=== PATIENT | male | born 1970 | race Caucasian/White ===

== ENCOUNTER → 2016-03-18 | Outpatient (CLI) | payer OTHER, MEDICARE ==
--- NOTE | 2016-03-18 18:38 | PN ---
DATE OF SERVICE: 03/18/2016 A 45-year-old gentleman who has been followed in sleep center for treatment of obstructive sleep apnea/hypopnea syndrome. Patient continued to use his CPAP equipment every night for the whole night. Patient continued to have symptoms of excessive daytime sleepiness, taking several naps during the day. [place] Sleepiness Scale increased to 10. MEDICATIONS: 1. ( ). 2. Requip. 3. Albuterol. 4. Flovent. During physical exam, patient in no distress. BP 120/82, HR 72, RR 16. Height 5 feet 7 inches. Weight 225 pounds. BMI 35.2. Neck 17 inches in circumference. HEENT: PERRLA, EOMI. LUNGS: Clear. HEART: S1, S2 regular. ABDOMEN: Soft, nontender. Slightly obese. EXTREMITIES: No edema. IMPRESSION: 1. Obstructive sleep apnea-hypopnea syndrome. Patient continued to use continuous positive airway pressure equipment, but feels sleepiness during the day. 2. Patient increased weight from 208 pounds during previous titration in 2011 up to 225 pounds at the present time. 3. History of brain injury in 1985. 4. History of seizures. 5. ( ) 6. Asthma. PLAN: 1. We will repeat CPAP titration to re-evaluate effective CPAP pressure at the present time. Patient increased his weight and feels sleepiness during the day. 2. Losing weight. 3. Sleep hygiene with regular time in bed for at least 8 hours. 4. No driving if feeling any sleepiness. Thank you very much for allowing me to participate in the management of your patient. Sincerely, Prem Cook MD, PhD, FAASM. Diplomat of [place] [employer], Sleep Medicine Board by [place] [employer] Board of [employer] Medicine Ell Teacher of [facility] [place]
== END | disposition home or self-care (01) ==
LOC: SLEEP 13:35
PROVIDERS: ATTEND Internal Medicine
DX: G47.33 Obstructive sleep apnea (adult) (pediatric) (principal); J45.909 Unspecified asthma, uncomplicated; G40.909 Epilepsy, unspecified, not intractable, without status epilepticus; Z79.899 Other long term (current) drug therapy
CPT/HCPCS: 99211

== ENCOUNTER → 2018-02-23 | Outpatient (CLI) | payer MEDICARE, OTHER ==
--- NOTE | 2018-02-23 15:13 | SFUN ---
SLEEP CENTER FOLLOW UP NOTE DATE OF SERVICE: 02/23/2018 A 47-year-old gentleman who has been followed in the Sleep Center for treatment of obstructive sleep apnea-hypopnea syndrome. Patient continued to use his CPAP equipment every night for the whole night without any significant problems, getting his supplies well. No snoring with the machine. [place] Sleepiness Scale today is 10. I checked his CPAP unit. CPAP pressure is 11 cm of water as it was prescribed during last titration in 2017. Usage is 30/30 nights for more than 4 hours. Average usage 8 hours and 36 minutes, which is great compliance. MEDICATIONS: , Requip, albuterol, QVAR, Flovent. PHYSICAL EXAM: Patient in no distress, BP 118/77, HR 73, RR 16, height 5, 7, weight 236.0, body mass index 36.9. Patient increased his weight: 28 pounds since previous CPAP titration when his weight was 208 pounds. Neck 18 inches in circumference, temperature 98.2, oxygen saturation at room air 98.2. OROPHARYNX: Mallampati 4. ABDOMEN: Obese. Neck Supple, no JVD. Thyroid is not palpable. LUNGS Clear to percussion and to auscultation. Good air exchange. No wheezing or rhonchi. HEART S1, S2 regular. No murmurs, gallops, or rubs. EXTREMITIES No clubbing or cyanosis. COMMERCIAL ANNOUNCER Awake, alert, and oriented X3. Cranial nerves 2 to 7 intact. There is no fasciculation or atrophy. noted. No focal deficits observed. IMPRESSION: 1. Obstructive sleep apnea-hypopnea syndrome, patient demonstrated 100% compliance with treatment, benefitting from treatment. 2. Obesity. 3. Status post brain injury in 1995. 4. History of seizures. 5. History of restless legs. 6. Asthma. 7. History of seizures, last episode of seizures around 15 years ago. PLAN: 1. Patient will continue treatment with CPAP every night for the whole night. 2. Will maintain all necessary CPAP prescriptions for mask, tube, filters. 3. We may consider to replace the CPAP unit. 4. Losing weight. 5. Precautions related to driving. No driving if feeling sleepiness. Thank you very much for allowing me to participate in the management of your patient. Sincerely, Prem Cook MD, PhD, FAASM Diplomat of [place] [employer] Specialties [place] Board of Internal Medicine Plant Attendant Or Assistant Operator of [facility] [place] MMODL / MENAN: [id number] /
== END ==
LOC: SLEEP 13:50
PROVIDERS: ATTEND Internal Medicine
DX: G47.33 Obstructive sleep apnea (adult) (pediatric) (principal); E66.9 Obesity, unspecified; Z98.890 Other specified postprocedural states; Z86.59 Personal history of other mental and behavioral disorders; Z87.898 Personal history of other specified conditions; J45.909 Unspecified asthma, uncomplicated; Z99.89 Dependence on other enabling machines and devices; Z79.899 Other long term (current) drug therapy; Z68.36 Body mass index [BMI] 36.0-36.9, adult

== ENCOUNTER → 2018-05-18 | Outpatient (CLI) | payer MEDICARE, OTHER ==
--- NOTE | 2018-05-18 17:21 | PN ---
PROGRESS NOTE DATE OF SERVICE: 05/18/2018 This patient is a 47-year-old gentleman who has been followed in the sleep center for treatment of obstructive sleep apnea-hypopnea syndrome. Recently the patient received his new CPAP unit, and he is able to use equipment every night for the whole night. He complains of water in the tube and feels that the pressure is too low when he is starting the machine. No complaints under high pressure. No snoring with the machine. I checked the patient's CPAP machine. Range of the pressure is from 5 to 14. Most of the time the pressure is 11.3. Leak is 5 L/minute, which is in normal range. Apnea- hypopnea index is only 0.3, which is perfect. Usage of the machine is 100% of the nights for more than 4 hours. Average usage is 8.8 hours, which is in very good range. Humidity is at the level of 8. [place] Sleepiness Scale today is 11. MEDICATIONS: 1. Requip. 2. Albuterol. 3. Qvar. 4. Flovent. 5. Carbatrol. PHYSICAL EXAMINATION: GENERAL: A pleasant patient in no distress. VITAL SIGNS: BP 132/75, HR 77, RR 16, weight 241.6, temperature 97.8, oxygen saturation at room air 94%. HEENT: PERRLA, EOMI. Evaluation of oropharynx showed tongue protrudes midline. Extremely low position of soft palate. Mallampati IV. NECK: Supple. No JVD. Thyroid is not palpable. LUNGS: Clear to percussion and to auscultation. Good air exchange. No wheezing or rhonchi. HEART: S1, S2 regular. No murmurs, gallops or rubs. ABDOMEN: Obese. EXTREMITIES: No clubbing or cyanosis. INSURANCE VERIFICATION CLERK: Awake, alert, and oriented X3. Cranial nerves 2 to 7 intact. There is no fasciculation or atrophy. noted. No focal deficits observed. IMPRESSION: 1. Obstructive sleep apnea-hypopnea syndrome. Patient demonstrated 100% compliance with treatment, benefitting from treatment. 2. Obesity. 3. Status post brain injury in 1995. 4. History of seizures. Last episode about 15 years ago. 5. History of restless legs. 6. Asthma. PLAN: 1. I taught the patient how to adjust humidity. We will decrease the level of humidity to 4. 2. The patient will keep the CPAP unit on a lower level than the level of his head during sleep by about 1 or 2 feet. 3. I will change pressure in the machine to range from 8 to 14. 4. Patient will continue to use CPAP equipment every night. 5. We will maintain prescriptions for all necessary CPAP supplies, including mask, tube, filters. 6. Losing weight. 7. No driving if feeling any sleepiness. Thank you very much for allowing me to participate in the management of your patient. Sincerely, Prem Cook MD, PhD, FAASM Diplomat of [place] Specialties [employer] Board of Internal Medicine Business Intelligence Reporting Analyst of [facility] [place] MMODL / IJN: [id number] /
== END | disposition home or self-care (01) ==
LOC: SLEEP 15:22
PROVIDERS: ATTEND Internal Medicine
DX: G47.33 Obstructive sleep apnea (adult) (pediatric) (principal); E66.9 Obesity, unspecified; J45.909 Unspecified asthma, uncomplicated; Z87.820 Personal history of traumatic brain injury; Z86.69 Personal history of other diseases of the nervous system and sense organs; Z99.89 Dependence on other enabling machines and devices; Z79.51 Long term (current) use of inhaled steroids; Z79.899 Other long term (current) drug therapy

== ENCOUNTER → 2018-05-24 | Outpatient (CLI) | payer MEDICARE, OTHER ==
[2018-05-26 11:40] VITALS: BMI 36.3
== END | disposition home or self-care (01) ==
LOC: LABWHC1 09:47
PROVIDERS: ATTEND Family Medicine
DX: R73.03 Prediabetes (principal); Z71.3 Dietary counseling and surveillance
CPT/HCPCS: 97802

== ENCOUNTER → 2018-11-30 | Outpatient (CLI) | payer MEDICARE, OTHER ==
--- NOTE | 2018-11-30 17:28 | PN ---
PROGRESS NOTE DATE OF SERVICE: 11/30/2018 48-year-old gentleman who has been followed in Sleep Center for treatment of obstructive sleep apnea-hypopnea syndrome. The patient is able to use CPAP equipment every night for the whole night with no significant problems at the present time after he received heated tube. Previously he had some condensation of water in the tube and it created some problems for him, but now no problems. No snoring with the machine. [place] Sleepiness Scale today is 10. I checked his CPAP unit, range of the pressure 8-14, average pressure 10.9, usage is 30 out of 30 nights for more than 4 hours with average usage 8 hours per night. Leak is 11 L/minutes which is absolutely normal. Apnea-hypopnea index only 0.3, which is perfect. MEDICATIONS: Albuterol, QVAR, Flovent, Carbatrol. PHYSICAL EXAM: Patient in no distress. BP 129/83, HR 70, RR 16, weight 233, temp 97.5, oxygen saturation at room air 94%. Oropharynx extremely low soft palate, Mallampati 4. Neck Supple, no JVD. Thyroid is not palpable. LUNGS Clear to percussion and to auscultation. Good air exchange. No wheezing or rhonchi. HEART S1, S2 regular. No murmurs, gallops, or rubs. ABDOMEN: Slightly obese. Soft and nontender. Bowel sounds are present. No organomegaly appreciated. EXTREMITIES No clubbing or cyanosis. BOX BRANDER Awake, alert, and oriented X3. Cranial nerves 2 to 7 intact. There is no fasciculation or atrophy. noted. No focal deficits observed. IMPRESSION: 1. Obstructive sleep apnea-hypopnea syndrome. Patient demonstrated 100% compliance with treatment benefitting from treatment. 2. Obesity. 3. History of seizures in the past. Last episode about 15 years ago. 4. Status post brain injury in 1985. 5. History of asthma. PLAN: 1. Patient will continue to use CPAP equipment every night for the whole night with the same regimen of pressure. 2. I will maintain prescriptions for all necessary CPAP supplies including mask, tube, filters. 3. The patient will continue to take Requip for restless legs. 4. Losing weight. 5. Precautions related to driving. No driving if feeling sleepiness. 6. Follow-up visit in 1 year or earlier if patient has any problems. Thank you very much for allowing me to participate in management of your patient. Sincerely, Prem Cook MD, PhD, FAASM Diplomat of [place] [employer] [employer] of Medical Specialties [employer] [place] Board of Internal Medicine Propulsion Systems Engineer of [facility] [place] MMODL / MENAN: [id number] /
== END | disposition home or self-care (01) ==
LOC: SLEEP 14:22
PROVIDERS: ATTEND Internal Medicine
DX: G47.33 Obstructive sleep apnea (adult) (pediatric) (principal); E66.9 Obesity, unspecified; Z86.69 Personal history of other diseases of the nervous system and sense organs; Z87.820 Personal history of traumatic brain injury; Z87.09 Personal history of other diseases of the respiratory system; Z99.89 Dependence on other enabling machines and devices; Z79.899 Other long term (current) drug therapy

== ENCOUNTER → 2020-06-12 | Outpatient (CLI) | payer MEDICARE, OTHER ==
--- NOTE | 2020-06-12 15:42 | SFUN ---
SLEEP CENTER FOLLOW UP NOTE DATE OF SERVICE: 06/12/2020 A 50-year-old gentleman has been followed in Sleep Center for treatment of obstructive sleep apnea-hypopnea syndrome home. Patient continued to use CPAP equipment every night for the whole night. No snoring with usage of equipment. Presently, no significant problem related to mask fitting, pressure or humidification as he had before. [place] Sleepiness Scale increased to 13. I checked his CPAP unit. Range of the pressure on 8-14, usage is 30 out of 30 nights for more than 4 hours with average usage 8.7 hours per night. Leak is 14 L/minute which is acceptable range. Apnea-hypopnea index only 0.3, which is absolutely perfect. MEDICATIONS: Carbatrol 300 mg twice a day and Carbatrol 100 mg once a day, albuterol inhaler, ropinirole 0.25 mg at bedtime, atorvastatin, Flovent. PHYSICAL EXAMINATION: GENERAL: Patient in no distress. VITAL SIGNS: BP 124/66, HR 68, RR 15, height 5 feet 8 inches, weight 235.6 pounds, body mass index 36, temperature 96.1, oxygen saturation at room air 94%. HEENT: PERRLA, EOMI. Oropharynx extremely low position of soft palate. Mallampati 4. NECK: Supple, no JVD. Thyroid is not palpable. LUNGS: Clear to percussion and to auscultation. Good air exchange. No wheezing or rhonchi. HEART: S1, S2 regular. No murmurs, gallops, or rubs. ABDOMEN: Obese. EXTREMITIES: No clubbing or cyanosis. INSTRUCTIONAL PARAPROFESSIONAL: Awake, alert, and oriented X3. Cranial nerves 2 to 7 intact. There is no fasciculation or atrophy. noted. No focal deficits observed. IMPRESSION: 1. Obstructive sleep apnea-hypopnea syndrome. Patient demonstrates 100% compliance with treatment, benefitting from treatment, normal respiration on CPAP. 2. Obesity: 3. History of seizures in the past, last episode about 15 years ago. 4. Status post brain injury. 5. History of restless legs. 6. Asthma. PLAN: 1. I wrote a prescription for all necessary CPAP supplies including a Mcknight FX, nasal pillow mask, heated tube, filters. 2. Patient will continue to use PAP equipment every night for the whole night. 3. Sleep hygiene with regular time in bed for at least 7-1/2 to 8 hours. 4. Precautions related to driving. No driving if feeling sleepiness. 5. I will maintain all necessary prescription for PAP supplies including mask, tube, filters. 6. Watching weight. 7. Follow-up visit in 6 months or earlier if patient has any problems. Thank you very much for allowing me to participate in management of your patient. Sincerely, Prem Cook MD, PhD, FAASM Diplomat of [place] Board of Medical Specialties [employer] Board of Internal Medicine Nuclear Auxiliary Operator of [facility] [place] MMODL / IJN: [id number] /
== END ==
LOC: SLEEP 10:11
PROVIDERS: ATTEND Internal Medicine
DX: G47.33 Obstructive sleep apnea (adult) (pediatric) (principal); Z87.820 Personal history of traumatic brain injury; Z86.69 Personal history of other diseases of the nervous system and sense organs; E66.9 Obesity, unspecified; G25.81 Restless legs syndrome; J45.909 Unspecified asthma, uncomplicated

== ENCOUNTER → 2021-02-26 | Outpatient (CLI) | payer MEDICARE, OTHER ==
--- NOTE | 2021-02-26 22:28 | SFUN ---
SLEEP CENTER FOLLOW UP NOTE DATE OF SERVICE: 02/26/2021 This 50-year-old gentleman has been followed in Sleep Center for treatment of obstructive sleep apnea-hypopnea syndrome. Patient continues to use CPAP equipment every night, getting supplies on time. [place] Sleepiness Scale is slightly increased to 11 today, but it is better than during the last visit, when it was 13. I checked his CPAP unit. Pressure is 8 to 14 cm of water, average 10.5 cm of water. Usage is 30/30 nights for more than 4 hours, average 8.4 hours per night. Leak is 13 L/minute, which is acceptable. Apnea-hypopnea index is only 0.5, which is totally normal. MEDICATIONS: 1. Carbatrol 700 mg once a day. 2. Requip 0.25 mg at bedtime. 3. Atorvastatin once a day. 4. Flovent. PHYSICAL EXAMINATION: GENERAL: Pleasant patient in no distress. VITAL SIGNS: BP 105/72, HR 66, RR 18, height 5 feet 7 inches, weight 223.6, body mass index 34.9, temperature 97.3, oxygen saturation at room air 96%. HEENT: PERRLA, EOMI, evaluation of oropharynx showed tongue protrudes midline. Extremely low position of soft palate; Mallampati IV. NECK: Supple, no JVD. Thyroid is not palpable. LUNGS: Clear to percussion and to auscultation. Good air exchange. No wheezing or rhonchi. HEART: S1, S2 regular. No murmurs, gallops, or rubs. ABDOMEN: Obese. EXTREMITIES: No clubbing or cyanosis. PUPPY TRAINER: Awake, alert, and oriented X3. Cranial nerves 2 to 7 intact. There is no fasciculation or atrophy. noted. No focal deficits observed. IMPRESSION: 1. Obstructive sleep apnea-hypopnea syndrome. Patient demonstrated great compliance with treatment. Totally normal respiration on CPAP. 2. Obesity. 3. History of seizures in the past, the last episode about 15 years ago. 4. Status post brain injury. 5. History of restless legs syndrome. 6. Asthma. PLAN: 1. Patient will continue to use PAP equipment every night for the whole night. 2. Sleep hygiene with regular time in bed for at least 7-1/2 to 8 hours. 3. Precautions related to driving. No driving if feeling sleepiness. 4. I will maintain all necessary prescription for PAP supplies including mask, tube, filters. 5. Watching weight. 6. Follow-up visit in 6 months or earlier if patient has any problems. Thank you very much for allowing me to participate in the management of your patient. Sincerely, Prem Cook MD, PhD, FAASM Diplomat of [place] Board of Medical Specialties Sleep Medicine Board of [place] Board of Internal Medicine Depalletizer Operator of [facility] [place] MMODL / MENAN: [id number] /
== END ==
LOC: SLEEP 11:35
PROVIDERS: ATTEND Internal Medicine
DX: G47.33 Obstructive sleep apnea (adult) (pediatric) (principal); E66.9 Obesity, unspecified; J45.909 Unspecified asthma, uncomplicated; G40.909 Epilepsy, unspecified, not intractable, without status epilepticus; G25.81 Restless legs syndrome; Z99.89 Dependence on other enabling machines and devices; Z98.890 Other specified postprocedural states; Z91.010 Allergy to peanuts; Z91.018 Allergy to other foods; Z68.34 Body mass index [BMI] 34.0-34.9, adult

== ENCOUNTER → 2021-09-10 | Outpatient (CLI) | payer MEDICARE, OTHER ==
--- NOTE | 2021-09-10 11:27 | P.PN ---
Subjective DATE: 09/10/2021 FOLLOW UP VISIT. Patient with obstructive sleep apnea hypopnea syndrome return to sleep center for follow-up visit. Information from previous visit have been reviewed. Patient is using PAP equipment every night for the whole night, getting PAP supplies in time. The patient does not have significant problems with the mask, PAP unit and humidification. [place] sleepiness scale is slightly increased to 11. I checked PAP unit. Air filter needs to be replaced PAP unit pressure 8-14 average 11.9 cm H2O. Usage is 100 % for more then 4 hours, average 8.2 hours per night. Leak is 8 l/m, which is in acceptable range. Apnea Hypopnea Index is 0.7, which is normal. MEDICATIONS:1. Requip 0.5 mg at bedtime 2. Atorvastatin once a day 3., Carbatrol During physical exam: GENERAL: A pleasant patient without any distress. VITAL SIGNS: BP 128/83, HR 72, RR 18, weight to 36.8, temperature 97, oxygen saturation at room air 95 % . HEENT: PERRLA, EOMI.low position of soft palate, Mallapati 4 . NECK: Supple. No JVD. LUNGS: Clear to percussion and to auscultation. Good air exchange. No wheezing or rhonchi. HEART: S1, S2 regular. ABDOMEN: Soft and nontender. Obese EXTREMITIES: No clubbing or cyanosis. FISHER DIVER NET: Awake, alert, and oriented x3. No focal deficit. Impressions: 1. Obstructive sleep apnea-hypopnea syndrome. Patient demonstrated great compliance with treatment, benefiting from treatment. 2. Obesity. Patient increased his weight 113 pounds compared to the previous visit. 3. Status post brain injury. 4. Restless leg syndrome, on control with Requip. 5. History of asthma. 6. History of seizures in the past last episode about 15 years ago. Plan: 1. Continue using PAP equipment every night for the whole night. 2. To replace air filter. To change air filter at least 1-2 times per month. 3. PAP unit should stay lower then position of the head. 4. Advised patient to remove all remaining water from humidifier canister daily and make it dry after each usage. Refill canister with fresh distilled water before each usage. 5. Sleep hygiene with regular time in bed for at least 8 hours. 6. Precautions related to driving. No driving if feel any sleepiness. 7. I will maintain prescription for PAP supplies including mask, tube, filters. 8. Follow up visit in 6 months or earlier if patient has any problems. 9. Watching weight. Thank you very much for allowing me to participate in the management of your pa tient. Prem Cook MD, PhD, FAASM. Diplomat of [place] Board of Sleep Medicine, Sleep Medicine Board by [place] Board of Internal Medicine Passenger Rate Clerk of [facility] [place]
== END ==
LOC: SLEEP 10:51
PROVIDERS: ATTEND Internal Medicine
DX: G47.33 Obstructive sleep apnea (adult) (pediatric) (principal); E66.9 Obesity, unspecified; G25.81 Restless legs syndrome; J45.909 Unspecified asthma, uncomplicated; Z87.820 Personal history of traumatic brain injury; Z99.89 Dependence on other enabling machines and devices; Z91.018 Allergy to other foods
CPT/HCPCS: 99212

== ENCOUNTER → 2022-10-07 | Outpatient (CLI) | payer MEDICARE, OTHER ==
--- NOTE | 2022-10-07 12:47 | P.PN ---
Subjective DATE: 10/07/2022 FOLLOW UP VISIT. Patient with obstructive sleep apnea hypopnea syndrome return to sleep center for follow-up visit. Information from previous visit have been reviewed. Patient is using PAP equipment every night for the whole night, getting PAP supplies in time. The patient does not have significant problems with the mask, PAP unit and humidification. [place] sleepiness scale is/increased to 11. I checked information from PAP unit. PAP unit pressure 6-14, average 12 cm H2O. Usage is 100 % for more then 4 hours, average 7.6 hours per night. Leak is 24 l/m, which is in acceptable range. Apnea Hypopnea Index is 0.3, which is normal. MEDICATIONS:1. Carbatrol 300 mg twice a day and 100 mg once a day 2. Atorvastatin 3. Requip 0.25 mg daily at bedtime During physical exam: GENERAL: A pleasant patient without any distress. VITAL SIGNS: BP 117/78, HR 68, RR 18 , weight 228.4, temperature 97.9, oxygen saturation at room air 94 % . HEENT: PERRLA, EOMI.low position of soft palate, Mallapati 4 . NECK: Supple. No JVD. LUNGS: Clear to percussion and to auscultation. Good air exchange. No wheezing or rhonchi. HEART: S1, S2 regular. ABDOMEN: Soft and nontender. Slightly obese EXTREMITIES: No clubbing or cyanosis. CLOTH PATTERN MAKER: Awake, alert, and oriented x3. No focal deficit. Impressions: 1. Obstructive sleep apnea-hypopnea syndrome. Patient demonstrated great compliance with treatment, benefiting from treatment. 2. Obesity, patient lost 4 pounds comparing with previous visit. 3. Status post brain surgery. 4. History of asthma. 5. Restless leg syndrome on treatment with Requip, no complaints. 6. History of seizures disorder, last episode about 15 years ago. Plan: 1. Continue using PAP equipment every night for the whole night. 2. To change air filter at least 1-2 times per month. 3. PAP unit should stay lower then position of the head. 4. Advised patient to remove all remaining water from humidifier canister daily and make it dry after each usage. Refill canister with fresh distilled water before each usage. 5. Sleep hygiene with regular time in bed for at least 8 hours. 6. Precautions related to driving. No driving if feel any sleepiness. 7. I will maintain prescription for PAP supplies including mask, tube, filters. 8. Follow up visit in 6 months or earlier if patient has any problems. 9. Watching and continue losing weight. Thank you very much for allowing me to participate in the management of your patient. Prem Cook MD, PhD, FAASM. Diplomat of [place] Board of Sleep Medicine, Sleep Medicine Board by [place] Board of Internal Medicine Maltster of [facility] [place]
== END ==
LOC: 3 N SLEEP 11:48
PROVIDERS: ATTEND Internal Medicine
DX: G47.33 Obstructive sleep apnea (adult) (pediatric) (principal); M51.36 Other intervertebral disc degeneration, lumbar region; E66.9 Obesity, unspecified; M79.12 Myalgia of auxiliary muscles, head and neck; M25.78 Osteophyte, vertebrae; M54.59 Other low back pain; M41.82 Other forms of scoliosis, cervical region; E11.9 Type 2 diabetes mellitus without complications; G40.909 Epilepsy, unspecified, not intractable, without status epilepticus; R26.9 Unspecified abnormalities of gait and mobility; G25.81 Restless legs syndrome; J45.909 Unspecified asthma, uncomplicated; Z98.890 Other specified postprocedural states; Z99.89 Dependence on other enabling machines and devices; Z91.010 Allergy to peanuts; Z91.018 Allergy to other foods
CPT/HCPCS: 99212

== ENCOUNTER → 2023-04-14 | Outpatient (CLI) | payer MEDICARE, OTHER ==
--- NOTE | 2023-04-14 11:45 | P.PN ---
Subjective DATE: 04/14/2023 FOLLOW UP VISIT. Patient with obstructive sleep apnea hypopnea syndrome return to sleep center for follow-up visit. Information from previous visit have been reviewed. Patient is using PAP equipment every night for the whole night, getting PAP supplies in time. The patient does not have significant problems with the mask, PAP unit and humidification. [place] sleepiness scale is 10. I checked information from PAP unit. PAP unit pressure 5-14, average 9.2 cm H2O. Usage is 100 % for more then 4 hours, average 8.5 hours per night. Leak is slightly increased to 29 l/m. Apnea Hypopnea Index is 0.7 for the last night and 0.3 for last several months, which is normal. MEDICATIONS:1. Ropinirole 0.25 mg once a day in the evening 2. Atorvastatin 20 mg once a day 3. Carbatrol During physical exam: GENERAL: A pleasant patient without any distress. VITAL SIGNS: BP 132/88, HR 64, RR 16, weight 235, temperature 97.7, oxygen saturation at room air 97 % . HEENT: PERRLA, EOMI.low position of soft palate, Mallapati 4 . NECK: Supple. No JVD. LUNGS: Clear to percussion and to auscultation. Good air exchange. No wheezing or rhonchi. HEART: S1, S2 regular. ABDOMEN: Soft and nontender. Slightly obese EXTREMITIES: No clubbing or cyanosis. PEST CONTROL WORKER: Awake, alert, and oriented x3. No focal deficit. Impressions: 1. Obstructive sleep apnea-hypopnea syndrome. Patient demonstrated great compliance with treatment, benefiting from treatment. 2. Status post brain surgery. 3. Obesity. 4. History of asthma. 5. Restless leg syndrome, no complaints on treatment with dopaminergic agonist. 6. History of seizure disorder, last episode more than 15 years ago. Plan: 1. Continue using PAP equipment every night for the whole night. 2. To change air filter at least 1-2 times per month. 3. PAP unit should stay lower then position of the head. 4. Advised patient to remove all remaining water from humidifier canister daily and make it dry after each usage. Refill canister with fresh distilled water before each usage. 5. Sleep hygiene with regular time in bed for at least 8 hours. 6. Precautions related to driving. No driving if feel any sleepiness. 7. I will maintain prescription for PAP supplies including mask, tube, filters. 8. Watching and losing weight. 9. Follow up visit in 6 months or earlier if patient has any problems. Thank you very much for allowing me to participate in the management of your patient. Prem Cook MD, PhD, FAASM. Diplomat of [place] Board of Sleep Medicine, Sleep Medicine Board by [place] Board of Internal Medicine Tax Assistant of [facility] [place]
== END ==
LOC: 3 N SLEEP 10:35
PROVIDERS: ATTEND Internal Medicine
DX: G47.33 Obstructive sleep apnea (adult) (pediatric) (principal); E66.9 Obesity, unspecified; G25.81 Restless legs syndrome; J45.909 Unspecified asthma, uncomplicated; Z98.890 Other specified postprocedural states; Z86.69 Personal history of other diseases of the nervous system and sense organs; Z99.89 Dependence on other enabling machines and devices; Z91.018 Allergy to other foods; Z79.899 Other long term (current) drug therapy
CPT/HCPCS: 99212

== ENCOUNTER → 2023-11-10 | Outpatient (CLI) | payer MEDICARE, OTHER ==
[2023-11-10 11:33] VITALS: BP 113/77; PULSE 60; RESP 18; TEMP 98.3
--- NOTE | 2023-11-10 11:52 | P.PROGSL ---
Subjective DATE: 11/10/2023 FOLLOW UP VISIT. Patient with obstructive sleep apnea hypopnea syndrome return to sleep center for follow-up visit. Information from previous visit have been reviewed. Patient is using PAP equipment every night for the whole night, getting PAP supplies in time. The patient does not have significant problems with the mask, PAP unit and humidification. [place] sleepiness scale is increased to 14. I checked information from PAP unit. PAP unit pressure 5-14, average 8.8 cm H2O. Usage is 100% for more then 4 hours, average 8.1 hours per night. Leak is 20 l/m, which is in acceptable range. Apnea Hypopnea Index is 0.3, which is normal. MEDICATIONS have been reviewed, please see below. During physical exam: GENERAL: A pleasant patient without any distress. VITAL SIGNS: Please see below, weight is 212.0 lbs. HEENT: PERRLA, EOMI.low position of soft palate, Mallapati 4 . NECK: Supple. No JVD. LUNGS: Clear to percussion and to auscultation. Good air exchange. No wheezing or rhonchi. HEART: S1, S2 regular. ABDOMEN: Soft and nontender. Slightly obese EXTREMITIES: No clubbing or cyanosis. BUSINESS BANKING OFFICER: Awake, alert, and oriented x3. No focal deficit. Impressions: 1. Obstructive sleep apnea-hypopnea syndrome. Patient demonstrated great compliance with treatment, benefiting from treatment. 2. Mild obesity, BMI 33.2, patient lost 23 pounds comparing with the previous visit. 3. Status post brain surgery. 4. History of asthma. 5. Restless leg syndrome, on treatment with dopaminergic agonist, no complaints. 6. History of seizure disorder, last episode more than 15 years ago. Plan: 1. Continue using PAP equipment every night for the whole night. 2. Sleep hygiene with regular time in bed for at least 7.5-8 hours 3. PAP unit should stay lower then position of the head. 4. Advised patient to remove all remaining water from humidifier canister daily and make it dry after each usage. Refill canister with fresh distilled water before each usage. 5. Watching and continue losing weight. 6. Precautions related to driving. No driving if feel any sleepiness. 7. I will maintain prescription for PAP supplies including mask, tube, filters. 8. Follow up visit in 8 months or earlier if patient has any problems. Thank you very much for allowing me to participate in the management of your patient. Prem Cook MD, PhD, FAASM. Diplomat of [employer], Sleep Medicine Board by [employer] [facility] [place] cc: Valeriy Klein DO, Walt Richter DO Objective - Vital Signs Vital Signs: Vital Signs Temp 98.3 F 11/10/23 11:32 Pulse 60 11/10/23 11:32 Resp 18 11/10/23 11:32 BP 113/77 11/10/23 11:32 Pulse Ox 97 11/10/23 11:32 FiO2 Intake & Output 11/09/23 11/10/23 11/10/23 18:59 06:59 18:59 Weight 96.162 kg Home Medications: Home Medications Medication Instructions Recorded Confirmed Type Atorvastatin [Lipitor] 20 mg PO DAILY 11/10/23 11/10/23 History carBAMazepine [Carbatrol] 100 mg PO DAILY 11/10/23 11/10/23 History carBAMazepine [Carbatrol] 300 mg PO DAILY 11/10/23 11/10/23 History metFORMIN HCL ER [Glucophage XR] 500 mg PO DAILY 11/10/23 11/10/23 History
== END ==
LOC: 3 N SLEEP 10:57
PROVIDERS: ATTEND Internal Medicine
CPT/HCPCS: 99212

== ENCOUNTER → 2024-06-07 | Outpatient (CLI) | payer MEDICARE, OTHER ==
[2024-06-07 11:20] VITALS: BP 111/75; PULSE 68; RESP 16; TEMP 97.6
--- NOTE | 2024-06-07 11:54 | P.PROGSL ---
Subjective DATE: 06/07/2024 FOLLOW UP VISIT. Patient with obstructive sleep apnea hypopnea syndrome return to sleep center for follow-up visit. Information from previous visit have been reviewed. Patient is using PAP equipment every night for the whole night, getting PAP supplies in time. The patient does not have significant problems with the mask, PAP unit and humidification. [place] sleepiness scale is slightly increased to 12. I checked information from PAP unit. PAP unit pressure 5-14, average 8.8 cm H2O. Usage is 100% for more then 4 hours, average 8.2 hours per night. Leak is 18 l/m, which is in acceptable range. Apnea Hypopnea Index is 0.3, which is normal. MEDICATIONS have been reviewed, please see below. During physical exam: GENERAL: A pleasant patient without any distress. VITAL SIGNS: Please see below, weight is 215 lbs. HEENT: PERRLA, EOMI.low position of soft palate, Mallapati 4 . NECK: Supple. No JVD. LUNGS: Clear to percussion and to auscultation. Good air exchange. No wheezing or rhonchi. HEART: S1, S2 regular. ABDOMEN: Soft and nontender.[] EXTREMITIES: No clubbing or cyanosis. BUS DRIVER: Awake, alert, and oriented x3. No focal deficit. Impressions: 1. Obstructive sleep apnea-hypopnea syndrome. Patient demonstrated great compliance with treatment, benefiting from treatment. 2. Mild obesity, BMI 33.1, patient increased weight on 3 pounds comparing with previous visit. 3. Status post brain surgery. 4. History of seizures disorder, last episode more than 15 years ago. 5. Restless leg syndrome. 6. History of asthma. Plan: 1. Continue using PAP equipment every night for the whole night. 2. Sleep hygiene with regular time in bed for at least 7.5-8 hours 3. PAP unit should stay lower then position of the head. 4. Advised patient to remove all remaining water from humidifier canister daily and make it dry after each usage. Refill canister with fresh distilled water before each usage. 5. Watching and losing weight. 6. Precautions related to driving. No driving if feel any sleepiness. 7. I will maintain prescription for PAP supplies including mask, tube, filters. 8. Follow up visit in 8 months or earlier if patient has any problems. Thank you very much for allowing me to participate in the management of your patient. Prem Cook MD, PhD, FAASM. Diplomat of [place] [employer], Sleep Medicine Board by [employer]out Worker [facility] [place] Objective - Vital Signs Vital Signs: Vital Signs Temp 97.6 F 06/07/24 11:19 Pulse 68 06/07/24 11:19 Resp 16 06/07/24 11:19 BP 111/75 06/07/24 11:19 Pulse Ox 97 06/07/24 11:19 FiO2 Intake & Output 06/06/24 06/07/24 06/07/24 18:59 06:59 18:59 Weight 97.522 kg Home Medications: Home Medications Medication Instructions Recorded Confirmed Type Atorvastatin [Lipitor] 20 mg PO DAILY 11/10/23 06/07/24 History carBAMazepine [Carbatrol] 100 mg PO DAILY 11/10/23 06/07/24 History carBAMazepine [Carbatrol] 300 mg PO DAILY 11/10/23 06/07/24 History metFORMIN HCL ER [Glucophage XR] 500 mg PO DAILY 11/10/23 06/07/24 History
== END ==
LOC: 3 N SLEEP 10:56
PROVIDERS: ATTEND Internal Medicine
DX: G47.33 Obstructive sleep apnea (adult) (pediatric) (principal); G40.909 Epilepsy, unspecified, not intractable, without status epilepticus; G25.81 Restless legs syndrome; E66.9 Obesity, unspecified; Z68.33 Body mass index [BMI] 33.0-33.9, adult; Z98.890 Other specified postprocedural states; Z87.09 Personal history of other diseases of the respiratory system; Z91.018 Allergy to other foods; Z99.89 Dependence on other enabling machines and devices
CPT/HCPCS: 99212